=== PATIENT | male | born 2000 | race Caucasian/White ===

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

== ENCOUNTER 2021-02-01 12:44 | Emergency (ER) | payer MEDICAID, SELFPAY ==
[2021-02-01 12:45] VITALS: BP 120/82; PULSE 102; RESP 20; TEMP 35.7; O2SAT 100; BMI 20.9
[2021-02-01 14:11] LABS: Absolute Lymphocyte Count 1.47 X10^3/uL (0.83-4.51); Absolute Neutrophil Count 5.9 X10^3/uL (2.0-7.7); Basophil# 0.02 X10^3/uL; Basophil% 0.3 % (0-1); Eosinophil# 0.03 X10^3/uL; Eosinophils% 0.4 % (0-5); Hematocrit 46.6 % (40-54); Hemoglobin 15.8 g/dL (13.0-16.5); Lymphocyte # 1.47 X10^3/ul (0.83-4.51); Lymphocyte % 18.6 % (19-41); Mean Corp Hgb Conc 33.9 g/dL (32-36); Mean Corpuscular Hgb 30.8 pg (27.0-32.0); Mean Corpuscular Volume 90.8 fL (80-94); Mean Platelet Vol. 9.3 fl (6.2-12.0); Monocyte# 0.49 X10^3/uL; Monocyte% 6.2 % (0-10); NRBC Flagged by Analyzer 0 % (0-5); Neutrophil # 5.87 X10^3/uL (2.7-7.7); Neutrophil % 74.1 % (47-70); Platelet Count 271 K/mm3 (150-450); RBC Distribution Width CV 11.8 % (11.6-14.6); RBC Distribution Width SD 39.6 fl (35.1-43.9); Red Blood Count 5.13 M/mm3 (4.6-6.2); White Blood Count 7.9 K/mm3 (4.4-11.0)
[2021-02-01 14:23] LABS: Anion Gap 7 (5-15); BUN 9 mg/dL (7-18); BUN/Creat Ratio 11.7 RATIO (10-20); Calcium,Total 9.4 mg/dL (8.5-10.1); Chloride 108 mmol/L (98-107); Creatinine, Serum 0.77 mg/dL (0.70-1.30); EST Glomerular Filtration Rate 138 mL/min (>60); Est Glom Filt Rate - Afr Amer 167 mL/min (>60); Glucose 89 mg/dL (74-106); Potassium 4.1 mmol/L (3.5-5.1); Sodium Level 142 mmol/L (136-145)
[2021-02-01 15:16] VITALS: BP 124/81; PULSE 104; RESP 20; O2SAT 98
--- NOTE | 2021-02-01 15:17 | CT_ITS ---
INDICATION: RLQ pain -- IV PO Contrast EXAMINATION: CT ABDOMEN AND PELVIS with CONTRAST - CT Abdomen And Pelvis W/ Contrast Injection TECHNIQUE: Multiple axial images were obtained of the abdomen following administration of IV contrast. Planar reconstructions obtained. A radiation dose optimization technique was used for this scan. IV Contrast dosage and agent: 100 mL Isovue-370 Oral contrast: Gastrografin and 100 mL Isovue-370 Radiation Dose (provided by facility) CTDIvol (7.83 ) mGy, DLP ( 296.40) mGy-cm COMPARISON: 11/24/2015 FINDINGS: LOWER THORAX: Lungs are clear. HEPATOBILIARY: Liver: The liver is homogeneous and shows no evidence of focal lesion. Gallbladder: The gallbladder is unremarkable. Pancreas: Pancreas is normal size configuration and density. No mass is noted. Spleen: The spleen is homogeneous and normal in size. . BOWEL: Stomach: The stomach is normal in size configuration, no evidence of focal masses, abnormal calcifications. No hiatal hernia noted. Bowel: Large small bowel loops have normal configuration. Nonspecific segments of gas-filled small bowel present in the mid abdomen. Sequelae of mild enteritis is a consideration. No bowel obstruction. No evidence diverticulitis. Appendix: The visualized appendix has normal appearance.: GENITOURINARY: Adrenals: Both adrenal glands are normal in size. Kidneys: Kidneys appear symmetric in size. No calcifications are seen in the collecting system. There is no hydronephrosis or surrounding fluid. Bladder: Normal Pelvic organs: The visualized pelvic organs are normal in size and configuration. No masses or adenopathy noted. RETROPERITONEUM: There is normal appearance of the abdominal aorta and inferior vena cava. LYMPH NODES: No evidence of retroperitoneal or para-aortic masses fluid collections or adenopathy. PERITONEAL CAVITY: No ascites noted ANTERIOR ABDOMINAL WALL: Normal, no hernia identified. BONES AND SOFT TISSUES: The skeleton shows no evidence for fractures or destructive lesions. OTHER: None CT/Abdomen/Pelvis WITH Contrast IMPRESSION: 1. Nonspecific appearance of small bowel segments with mild gas distention and small air-fluid levels present. No masses or bowel obstruction however sequelae of mild enteritis is a consideration. 2. No evidence diverticulitis. 3. Normal appendix noted. 4. No evidence of obstructive uropathy. 5. No abnormal fluid collections noted. No evidence of radiodense cholelithiasis. Electronically Signed: Art Hunt MD at 17:43 EST Tel , Service support ,
--- NOTE | 2021-02-01 15:18 | EX.ED.DYSGE1 ---
HPI History of Present Illness Chief Complaint: Abd Pain Informant: patient Onset/Context/Timing Onset: Days (4 days) Context: Gradual Onset Current Severity: Mild Maximum Severity: Moderate Narrative Narrative: Patient presents secondary to cough along with loss of smell and taste in addition to right lower quadrant abdominal pain. Patient states that symptoms started 4 days ago but the typical head cold. He does have some sinus pressure. No fever or chills noted. He is coughing up yellow to green-colored sputum. He also complains of pain to the mid to lower right side of his abdomen. No pain with urination or bowel movements. [facility] Medical History Hydronephrosis Medical History no medical history Home Medications escitalopram oxalate [Lexapro] 10 mg PO DAILY 10/20/20 [History Last Taken Unknown] Allergy/AdvReac Type Severity Reaction Status Date / Time acetaminophen [From Tylenol] Allergy Swelling Verified 02/01/21 12:44 Surgical History no surgical history Social History Smoking Status: Current every day smoker tobacco type: cigarettes ROS ROS ED Constitutional Constitutional ED: Denies chills or fever(s) Eyes Eyes: Denies change in vision ENT ENT ED: Reports rhinorrhea and other Details: Sinus pressure ; Denies sore throat Cardiovascular Cardiovascular: Denies chest pain Respiratory/Chest Respiratory/Chest: Reports cough; Denies dyspnea Gastrointestinal Gastrointestinal: Reports abdominal pain; Denies diarrhea, nausea or vomiting Genitourinary Genitourinary ED: Denies dysuria or hematuria Integumentary Denies rash Neurologic Neurologic: Denies headache(s) or weakness Allergic/Immunologic Allergic/Immunologic ED: Denies urticaria EXAM Physical Exam Const Vital Signs: 02/01/21 12:45 02/01/21 15:16 02/01/21 17:04 Temperature 96.3 F L Temperature Source Temporal Pulse Rate 102 H 104 H 100 Respiratory Rate 20 H 20 H 18 Blood Pressure 120/82 H 124/81 H 120/71 Blood Pressure Mean 94 95 87 Pulse Ox 100 98 97 Oxygen Delivery Method Room Air Positive well nourished and well developed General Appearance ED: well developed Eyes PERRL and EOMs intact bilaterally Neck supple Chest Wall inspection of chest normal and palpation of chest normal Resp normal respiratory effort and clear to auscultation bilaterally Cardio regular rate and regular rhythm GI Auscultation: hypoactive bowel sounds Palpation: tender RLQ; Negative for rebound tenderness present Extremity normal to inspection Neuro oriented x3 Sensorium / Orientation: alert Psych mental status grossly normal Skin no rashes or lesions noted MDM MDM MDM Narrative Medical decision making narrative: Covid swab, lab work, urinalysis, CT of abdomen pelvis obtained. Patient given Toradol and IV fluids. Lab Data Attestation: I reviewed the patient's lab results. Labs: Laboratory Results - last 24 hr 02/01/21 02/01/21 02/01/21 13:55 13:55 15:18 WBC 7.9 RBC 5.13 Hgb 15.8 Hct 46.6 MCV 90.8 MCH 30.8 MCHC 33.9 RDW Std Deviation 39.6 RDW Coeff of Jimena 11.8 Plt Count 271 MPV 9.3 Immature Gran % (Auto) 0.400 Neut % (Auto) 74.1 H Lymph % (Auto) 18.6 L Williams % (Auto) 6.2 Eos % (Auto) 0.4 Baso % (Auto) 0.3 Absolute Neuts (auto) 5.9 Absolute Lymphs (auto) 1.47 Nucleated RBC % 0 Sodium 142 Potassium 4.1 Chloride 108 H Carbon Dioxide 27.0 Anion Gap 7 BUN 9 Creatinine 0.77 Estim Creat Clear Calc 148.50 Est GFR (MDRD) Af Amer 167 Est GFR (MDRD) Non-Af 138 BUN/Creatinine Ratio 11.7 Glucose 89 Calcium 9.4 Urine Color Yellow Urine Clarity Clear Urine pH 6.0 Ur Specific [place] 1.015 Urine Protein 15 H Urine Glucose (UA) Normal Urine Ketones 5 H Urine Occult Blood Negative Urine Nitrite Negative Urine Bilirubin Negative Urine Urobilinogen 1 H Ur Leukocyte Esterase 25 H Urine RBC 0 SEEN Urine WBC 0 SEEN Ur Squamous Epith Cells 0 SEEN Urine Bacteria RARE Urine Mucus 0 SEEN Rapid Covid: Negative Radiography Diagnostic Testing: Clinical Impression(s) from Imaging Studies Abdomen/Pelvis CT 02/01/21 15:17 IMPRESSION: 1. Nonspecific appearance of small bowel segments with mild gas distention and small air-fluid levels present. No masses or bowel obstruction however sequelae of mild enteritis is a consideration. 2. No evidence diverticulitis. 3. Normal appendix noted. 4. No evidence of obstructive uropathy. 5. No abnormal fluid collections noted. No evidence of radiodense cholelithiasis. Electronically Signed: Art Hunt MD at 17:43 EST Tel , Service support , Treatment and Re-Evaluation Comments:: Lab work unremarkable with normal white count. Normal renal function. Urinalysis shows no sign of infection or blood. CT scan reveals normal-appearing appendix. No acute findings noted. Test results discussed with the patient. I believe he has a viral illness, but Covid is negative. He is given instructions for supportive care. 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
[2021-02-01 15:22] LABS: Mucous, Urine 0 SEEN /hpf (<or=2+); Red Blood Cells-Urine 0 SEEN /hpf (0-5); Squamous Epithelial Cells - UA 0 SEEN /hpf (0-5); White Blood Cells 0 SEEN /hpf (0-5)
[2021-02-01 15:31] LABS: Color, Urine Yellow (Yellow); Glucose, Dipstick Normal (Normal); Ketone-Dipstick 5 mg/dl (Negative); Leukocyte Esterase-Dipstick 25 /ul (Negative); Nitrite-Dipstick Negative (Negative); Occult Blood-Urine Negative /ul (Negative); Protein-Dipstick 15 mg/dl (Negative); Specific Gravity, Urine 1.015 (1.002-1.030); Urine Bilirubin Dipstick Negative (Negative); Urine Clarity Clear (Clear); Urine Urobilinogen 1 mg/dl (Normal)
[2021-02-01 15:39] LABS: Bacteria RARE /hpf (None Seen)
[2021-02-01] MEDS: Ketorolac 30 MG/ML Syringe IV (16:10)
[2021-02-01] MEDS: 0.9% Normal Saline 1,000 ML 150 ML IV (16:11)
[2021-02-01 17:04] VITALS: BP 120/71; PULSE 100; RESP 18; O2SAT 97
== END 2021-02-01 18:07 | disposition home or self-care (01) ==
PROVIDERS: Emergency Provider Emergency Medicine; PCP Nurse Practitioner
DX: B34.9 Viral infection, unspecified (principal); F17.210 Nicotine dependence, cigarettes, uncomplicated
CPT/HCPCS: 74177; 80048; 81001; 85025; 87426; 96361; 96374; 99283; J7030; Q9967; A4216

== ENCOUNTER 2021-02-03 13:16 | Emergency (ER) | payer MEDICAID, SELFPAY ==
[2021-02-03 13:16] VITALS: BP 113/69; PULSE 79; RESP 18; TEMP 36.6; O2SAT 100; BMI 20.9
--- NOTE | 2021-02-03 15:19 | CT_ITS ---
STUDY: CT ORBITS WITH CONTRAST REASON FOR EXAM: Male, 20 years old. Periorbital cellulitis RADIATION DOSAGE (If Supplied By Facility): CTDIvol = ( 29.38 ) mGy, DLP = ( 341.77 ) mGycm TECHNIQUE: The patient was scanned in a multi detector CT scanner. Transaxial imaging was performed following the intravenous administration of IV 100mL Isovue-300. Sagittal and coronal images were reconstructed. Individualized dose optimization techniques were used for this CT. COMPARISON: None. FINDINGS: Normal globes. Normal intraconal spaces. Normal optic nerve sheath complex. Normal bilateral extraocular muscles. Normal lacrimal glands. Mild left periorbital subcutaneous edema. Normal bilateral medial and inferior orbital arambula. Normal bilateral maxillary bones. Normal bilateral frontozygomatic arches. Normal bilateral zygomatic temporal arches. Significant mucosal thickening of the paranasal sinuses compatible with pansinusitis. Normal soft tissue structures. There is no demonstrated abnormal enhancement. CT/Orb Sella Post Fossa Ear W/CON IMPRESSION: Pansinusitis. Mild left periorbital subcutaneous edema. Electronically Signed: Uli Damon DO at 18:11 EST Tel [phone], Service support ,
--- NOTE | 2021-02-03 15:20 | EDS_ITS ---
HPI History of Present Illness Chief Complaint: Edema Detail of Chief Complaint: Left eyelid edema and pain Informant: patient Onset/Context/Timing Onset: Yesterday Current Severity: Mild Maximum Severity: Moderate Narrative Narrative: Patient presents with pain and swelling around his left eye. He states last evening he noted some pain just above his left eye. He thought was a headache he could sleep it off. When he woke this morning his eye was matted shut. He then had a lot of watering from his eye. He states vision from his left eye does feel blurry. He does have pain when he moves his eye. Patient was recently seen with viral syndrome symptoms including URI like symptoms along with right lower quadrant pain. Test results were unremarkable and Covid test was -2 days ago. [facility] Medical History Hydronephrosis Home Medications escitalopram oxalate [Lexapro] 10 mg PO DAILY 10/20/20 [History Last Taken Unknown] clindamycin HCl 450 mg PO TID 10 Days #90 cap 02/03/21 [Rx Last Taken Unknown] Allergy/AdvReac Type Severity Reaction Status Date / Time acetaminophen [From Tylenol] Allergy Swelling Verified 02/01/21 12:44 Social History Smoking Status: Current every day smoker tobacco type: cigarettes ROS ROS ED Constitutional Constitutional ED: Denies chills or fever(s) Eyes Eyes: Reports change in vision ENT ENT ED: Reports rhinorrhea; Denies sore throat Cardiovascular Cardiovascular: Denies chest pain Respiratory/Chest Respiratory/Chest: Denies cough or dyspnea Gastrointestinal Gastrointestinal: Denies abdominal pain, diarrhea, nausea or vomiting Genitourinary Genitourinary ED: Denies dysuria Musculoskeletal Musculoskeletal: Denies back pain Integumentary Denies rash Neurologic Neurologic: Denies weakness Allergic/Immunologic Allergic/Immunologic ED: Denies urticaria EXAM Physical Exam Const Vital Signs: 02/03/21 13:16 Temperature 98 F Temperature Source Temporal Pulse Rate 79 Respiratory Rate 18 Blood Pressure 113/69 Blood Pressure Mean 83 Pulse Ox 100 Oxygen Delivery Method Room Air Positive well nourished and well developed General Appearance ED: well developed HEENT Reports moist mucous membranes HEENT Narrative: Clear rhinorrhea. Eyes PERRL and EOMs intact bilaterally Eyes Narrative: Minimal erythema around the left eyelid. Extraocular movements fully intact. No significant conjunctival injection. Neck supple Chest Wall inspection of chest normal and palpation of chest normal Resp normal respiratory effort and clear to auscultation bilaterally Cardio regular rate and regular rhythm GI normal to inspection, nondistended, normoactive bowel sounds and non-tender Palpation: soft Extremity normal to inspection Neuro oriented x3 Sensorium / Orientation: alert Skin no rashes or lesions noted MDM MDM MDM Narrative Medical decision making narrative: CT scan of the orbits with IV contrast ordered to rule out orbital cellulitis. Patient just had blood work drawn 2 days ago that was unremarkable. Radiography Diagnostic Testing: Clinical Impression(s) from Imaging Studies CT Orbit Sella Inner 02/03/21 15:19 IMPRESSION: Pansinusitis. Mild left periorbital subcutaneous edema. Electronically Signed: Uli Damon DO at 18:11 EST Tel [phone], Service support , Treatment and Re-Evaluation Comments:: CT scan reveals mild subcutaneous edema in the periorbital area but no evidence of orbital cellulitis. He does have sinus infection. He will be treated with antibiotics and given a work note until Sunday. Return instructions are provided. Discharge Plan Triage Chief Complaint: Edema ED Provider: Margy Hernandez Dx/Rx/DC Orders Clinical Impression: Sinusitis, Cellulitis, periorbital Instructions: ED Periorbital Cellulitis, ED Sinusitis (Antibiotic Treatment) Prescriptions: New clindamycin HCl 150 mg capsule 450 mg PO TID 10 Days Qty: 90 RF: 0 No Action escitalopram oxalate [Lexapro] 10 mg Tablet 10 mg PO DAILY RF: 0 Stand Alone Forms: ED Work / School Excuse Primary Care Provider: Franki Ro NP Referrals: Kristyn Dc MD [STAFF PHYSICIAN] - As Needed Franki Ro NP, OFFICE EXECUTIVE-C [Primary Care Provider] - Disposition Disposition: Home, Self Care
[2021-02-03] MEDS: Ketorolac 30 MG/ML Syringe IV (16:26)
[2021-02-03] MEDS: Clindamycin HCl 150 MG Capsule 450 MG PO (18:29)
== END 2021-02-03 18:33 | disposition home or self-care (01) ==
PROVIDERS: Emergency Provider Emergency Medicine; PCP Nurse Practitioner
DX: L03.213 Periorbital cellulitis (principal); J32.4 Chronic pansinusitis; F17.210 Nicotine dependence, cigarettes, uncomplicated
CPT/HCPCS: 70481; 96374; 99284; Q9967; A4216

== ENCOUNTER 2022-04-18 14:05 | Emergency (ER) | payer MEDICAID, SELFPAY ==
[2022-04-18 14:06] VITALS: BP 144/89; PULSE 92; RESP 16; TEMP 36.6; O2SAT 98; BMI 19.6
[2022-04-18 14:48] VITALS: BP 124/81; PULSE 73; RESP 16; O2SAT 98
--- NOTE | 2022-04-18 14:49 | CT_ITS ---
STUDY: CT ABDOMEN AND PELVIS WITH CONTRAST REASON FOR EXAM: Male, 22 years old. 3 day history of right lower quadrant pain. Bloody stool. RADIATION DOSAGE (If Supplied By Facility): CTDIvol = ( 13.35 ) mGy, DLP = ( 520.07 ) mGycm TECHNIQUE: Transaxial images were obtained from the dome of the diaphragm to the symphysis pubis without oral contrast. IV 100mL Isovue-300 was administered. Sagittal and coronal images were reconstructed. Individualized dose optimization techniques were used for this CT. COMPARISON: Comparison is made with prior study dated 02/01/2021. FINDINGS: The visualized lung bases are unremarkable. The visualized portions of the heart are within normal limits. Normal liver. Normal gallbladder and extrahepatic biliary system. Normal spleen. Normal pancreas. Normal bilateral adrenal glands. Normal right kidney. Normal left kidney. Normal visualized stomach. Normal small intestine. Mural thickening of the rectosigmoid colon. The appendix is visualized and appears normal. Normal abdominal aorta. Normal inferior vena cava. Normal retroperitoneum. Normal urinary bladder. Normal abdominal wall. Normal osseous structures. CT/Abdomen/Pelvis W IV Cont ONLY IMPRESSION: Mural thickening of the rectosigmoid colon. Electronically Signed: Renzo Denton MD at 15:57 EST ,
--- NOTE | 2022-04-18 14:50 | EDS_ITS ---
HPI History of Present Illness Chief Complaint: Abd Pain Narrative Narrative: Patient presents with abdominal pain that started about 2 days ago, it is right lower quadrant. It is associated with some nausea. He has no flank pain associated with this he has no testicular pain or urinary symptoms. No recent fevers or chills. [facility] Medical History Hydronephrosis Home Medications escitalopram oxalate 10 mg tablet (Lexapro) 10 mg PO DAILY 10/20/20 [History Last Taken Unknown] clindamycin HCl 150 mg capsule 450 mg PO TID 10 days #90 caps 02/03/21 [Rx Last Taken Unknown] dicyclomine 20 mg tablet 20 mg PO BID #20 tabs 04/18/22 [Rx Last Taken Unknown] Allergy/AdvReac Type Severity Reaction Status Date / Time acetaminophen [From Tylenol] Allergy Swelling Verified 04/18/22 14:09 Family History no significant family his Surgical History no surgical history Social History Smoking Status: Current every day smoker tobacco type: cigarettes ROS ROS ED ROS Narrative Past medical history: Reviewed Medications: Reviewed Social history: Noncontributory Review of systems: All systems negative except as indicated General: No fever ENT: No upper airway congestion, normal voice Neck: No neck pain Cardiovascular: No chest pain Respiratory: No shortness of breath or cough Gastrointestinal: As in HPI Genitourinary: No dysuria Musculoskeletal: Denies myalgias no difficulty with ambulation Skin: No rash Neurological: No memory loss, confusion or any focal weakness Psych: No recent behavioral changes Hematologic: No easy bleeding or easy bruising EXAM Physical Exam Narrative Exam Narrative: Physical exam General: Well nourished, Well developed, No Acute Distress Head: Normocephalic, Atraumatic Eyes: Conjunctiva not pale ENT: Moist mucous membranes Neck: Supple, Nontender, No lymphadenopathy Cardiovascular: Regular rate, Regular rhythm Respiratory: No distress, CTA bilaterally Abdomen: Soft, right lower quadrant abdominal tenderness no guarding or rebound. No CVA tenderness. Back: Nontender, Normal Inspection. Negative for: CVA tenderness Extremities: Nontender, No edema Skin: Normal color, No rash Neurological: Alert, Normal Strength, Normal Sensation Psychological: Normal affect Const Vital Signs: 04/18/22 14:06 04/18/22 14:48 Temperature 98 F Temperature Source Temporal Pulse Rate 92 73 Respiratory Rate 16 16 Blood Pressure 144/89 H 124/81 H Blood Pressure Mean 107 95 Pulse Ox 98 98 Oxygen Delivery Method Room Air MDM MDM MDM Narrative Medical decision making narrative: Patient denies a normal white count and hemoglobin, he was worried that he did see some blood in his stool. He may have colitis, he is in the H distribution for Crohn's and/or ulcerative colitis and may need a scope. I will refer him to GI. Otherwise I discussed with him and his friend in the room, he was given analgesia in the ED he has no diarrhea or any other infectious signs or symptoms I believe he can be safely discharged home. If anything changes he is to return. Lab Data Labs: Laboratory Results - last 24 hr 04/18/22 04/18/22 15:01 15:01 WBC 6.1 RBC 4.79 Hgb 15.3 Hct 44.5 MCV 92.9 MCH 31.9 MCHC 34.4 RDW Std Deviation 38.8 RDW Coeff of Jimena 11.3 L Plt Count 149 L MPV 10.1 Immature Gran % (Auto) 0.200 Neut % (Auto) 58.2 Lymph % (Auto) 32.6 [place] % (Auto) 7.8 Eos % (Auto) 0.7 Baso % (Auto) 0.5 Absolute Neuts (auto) 3.6 Absolute Lymphs (auto) 2.00 Nucleated RBC % 0 Sodium 142 Potassium 3.7 Chloride 111 H Carbon Dioxide 26.0 Anion Gap 5 BUN 12 Creatinine 0.82 Estim Creat Clear Calc 132.57 Est GFR (MDRD) Af Amer 153 Est GFR (MDRD) Non-Af 127 BUN/Creatinine Ratio 14.7 Glucose 91 Calcium 9.3 Total Bilirubin 0.80 AST 8 L ALT 13 L Alkaline Phosphatase 72 Total Protein 7.3 Albumin 4.3 Globulin 3.0 Albumin/Globulin Ratio 1.4 Lipase 21 L Radiography Diagnostic Testing: Clinical Impression(s) from Imaging Studies Abdomen/Pelvis CT 04/18/22 14:49 IMPRESSION: Mural thickening of the rectosigmoid colon. Electronically Signed: Renzo Denton MD at 15:57 EST , Discharge Plan Triage Chief Complaint: Abd Pain ED Provider: Francisco Marie Dx/Rx/DC Orders Clinical Impression: Abdominal pain, Bright red rectal bleeding, Colitis Instructions: Abdominal Pain Prescriptions: New dicyclomine 20 mg tablet 20 mg PO BID Qty: 20 0RF No Action escitalopram oxalate [Lexapro] 10 mg Tablet 10 mg PO DAILY clindamycin HCl 150 mg capsule 450 mg PO TID 10 Days Qty: 90 0RF Primary Care Provider: Franki Ro NP Referrals: Palmer Quick DO [Med Staff - Active Staff] - 3-5 Days Franki Ro NP, BLADE BENDER FURNACE TENDER-C [Primary Care Provider] - Disposition Disposition: Home, Self Care
[2022-04-18 15:12] LABS: Absolute Neutrophil Count 3.6 X10^3/uL (2.0-7.7); Basophil# 0.03 X10^3/uL; Basophil% 0.5 % (0-1); Eosinophil# 0.04 X10^3/uL; Eosinophils% 0.7 % (0-5); Hematocrit 44.5 % (40-54); Hemoglobin 15.3 g/dL (13.0-16.5); Lymphocyte % 32.6 % (19-41); Mean Corp Hgb Conc 34.4 g/dL (32-36); Mean Corpuscular Hgb 31.9 pg (27.0-32.0); Mean Corpuscular Volume 92.9 fL (80-94); Mean Platelet Vol. 10.1 fl (6.2-12.0); Monocyte# 0.48 X10^3/uL; Monocyte% 7.8 % (0-10); NRBC Flagged by Analyzer 0 % (0-5); Neutrophil # 3.58 X10^3/uL (2.7-7.7); Neutrophil % 58.2 % (47-70); Platelet Count 149 K/mm3 (150-450); RBC Distribution Width CV 11.3 % (11.6-14.6); RBC Distribution Width SD 38.8 fl (35.1-43.9); Red Blood Count 4.79 M/mm3 (4.6-6.2); White Blood Count 6.1 K/mm3 (4.4-11.0)
[2022-04-18] MEDS: Ondansetron 4 MG/2 ML Vial IV (15:12)
[2022-04-18] MEDS: Morphine 4 MG/ML Syringe IV (15:12)
[2022-04-18 15:26] LABS: ALB/GLOB Ratio 1.4 RATIO (0.9-2.4); AST(SGOT) 8 U/L (15-37); Alanine Aminotransfer ALT/SGPT 13 U/L (16-61); Albumin, Serum 4.3 g/dL (3.2-5.0); Alkaline Phosphatase 72 U/L (45-117); Anion Gap 5 (5-15); BUN 12 mg/dL (7-18); BUN/Creat Ratio 14.7 RATIO (10-20); Calcium,Total 9.3 mg/dL (8.5-10.1); Chloride 111 mmol/L (98-107); Creatinine, Serum 0.82 mg/dL (0.70-1.30); EST Glomerular Filtration Rate 127 mL/min (>60); Est Glom Filt Rate - Afr Amer 153 mL/min (>60); Estimated Creatinine Clearance 132.57 ml/min; Glucose 91 mg/dL (74-106); Lipase 21 U/L (73-393); Potassium 3.7 mmol/L (3.5-5.1); Protein, Total 7.3 g/dL (6.4-8.2); Sodium Level 142 mmol/L (136-145)
[2022-04-18 16:18] VITALS: BP 124/81; PULSE 68; RESP 16; O2SAT 100
== END 2022-04-18 16:19 | disposition home or self-care (01) ==
PROVIDERS: Emergency Provider Emergency Medicine; PCP Nurse Practitioner; Visit Provider Emergency Medicine
DX: K52.9 Noninfective gastroenteritis and colitis, unspecified (principal); F17.210 Nicotine dependence, cigarettes, uncomplicated
CPT/HCPCS: 74177; 80053; 83690; 85025; 96361; 96374; 96375; 99283; J7030; Q9967; A4216; J2405

== ENCOUNTER 2022-08-18 21:14 | Emergency (ER) | payer MEDICAID, SELFPAY ==
[2022-08-18 21:15] VITALS: BP 132/72; PULSE 84; RESP 16; TEMP 36.4; O2SAT 99; BMI 20.9
--- NOTE | 2022-08-18 21:28 | EDS_ITS ---
HPI History of Present Illness Chief Complaint: Upper Extremity Injury Informant: patient Narrative Narrative: Patient states he came home from work and slipped and fell on hardwood floor that was wet, falling against his left forearm. He has pain from the wrist to the elbow and a little in the shoulder he did not fall against the shoulder. He is left-hand dominant. No other injuries. [facility] Medical History Hydronephrosis Allergy/AdvReac Type Severity Reaction Status Date / Time acetaminophen [From Tylenol] Allergy Severe Anaphylaxis Verified 08/18/22 21:50 Social History Smoking Status: Current every day smoker tobacco type: cigarettes ROS ROS ED Constitutional Constitutional ED: Denies chills or fever(s) Musculoskeletal Musculoskeletal: Reports extremity pain; Denies neck pain Integumentary Denies Abrasions, rash or wounds Neurologic Neurologic: Denies paresthesias or weakness EXAM Physical Exam Const Vital Signs: 08/18/22 21:15 Temperature 97.6 F L Temperature Source Temporal Pulse Rate 84 Respiratory Rate 16 Blood Pressure 132/72 H Blood Pressure Mean 92 Pulse Ox 99 Oxygen Delivery Method Room Air Positive well nourished and well developed General Appearance ED: well developed and NAD Neck full ROM and supple Back/Spine normal ROM and normal to inspection Extremity Extremity Narrative: Abrasions to the volar aspect of the mid left forearm without deformity. Mild swelling. Limited range of motion of the wrist and elbow due to pain. There is no bony tenderness at the elbow. Mild tenderness at the acromion of the left shoulder but good range of motion there. No acromioclavicular tenderness or clavicle tenderness. He is tender at the distal radius and forearm, the distal two thirds of them. He can supinate and pronate somewhat limited with this but he is able. No hand tenderness or limitations. Neuro oriented x3, no focal motor deficits and no sensory deficits noted Sensorium / Orientation: alert Psych mental status grossly normal and thought process normal Skin no wounds Rashes: no rashes MDM MDM MDM Narrative Medical decision making narrative: 2 view x-ray series of the right forearm were obtained including the wrist and the elbow, all negative for any acute fracture or dislocation on my interpretation. Patient reassured likely muscular injury, all compartments are soft and nondistended and I do not suspect acute compartment syndrome here. Given a wrist splint, ice pack, Naprosyn, instructions for supportive care and reasons to return. Discharge Plan Triage Chief Complaint: Upper Extremity Injury ED Provider: Tony Frankel Dx/Rx/DC Orders Clinical Impression: Contusion of left forearm, Fall from slipping on wet surface Instructions: ED Contusion, Upper Extremity Primary Care Provider: Franki Ro NP Referrals: Franki Ro NP, WARDROBE COORDINATOR-C [Primary Care Provider] - Doctor,Your [Non-Staff] - 1 Week if not improving Disposition Disposition: Home, Self Care Discharge Date/Time: 08/18/22 22:39
--- NOTE | 2022-08-18 21:28 | RAD_ITS ---
INDICATION: injury EXAMINATION/TECHNIQUE: X-RAY - LEFT XR Forearm 2 Views COMPARISON: None. FINDINGS: 2 views of the left forearm. BONES: Normal anatomic alignment without evidence of fracture or subluxation. No concerning bony lesion or abnormal sclerosis to suggest lesion. JOINTS: No significant degenerative change. SOFT TISSUES: Unremarkable. RAD/Forearm 2 Views IMPRESSION: No acute osseous abnormality of the left forearm. Electronically Signed: Shaun Bagley MD at 22:59 EDT ,
[2022-08-18] MEDS: Naproxen 250 MG Tablet 500 MG PO (22:35)
== END 2022-08-18 22:39 | disposition home or self-care (01) ==
PROVIDERS: Emergency Provider Emergency Medicine; PCP Nurse Practitioner; Visit Provider Emergency Medicine
DX: S50.12XA Contusion of left forearm, initial encounter (principal); W01.0XXA Fall on same level from slipping, tripping and stumbling without subsequent striking against object, initial encounter; F17.210 Nicotine dependence, cigarettes, uncomplicated
CPT/HCPCS: 73090; 99283

== ENCOUNTER 2023-05-08 14:36 | Emergency (ER) | payer MEDICAID, SELFPAY ==
--- NOTE | 2023-05-08 15:00 | RAD_ITS ---
STUDY: X-RAY - LEFT FOOT CLINICAL: Male, 23 years old. CRUSH INJURY TECHNIQUE: 3 view(s) of the foot. COMPARISON: None. FINDINGS: Normal talus, calcaneus, and tarsal bones. Normal visualized subtalar, talonavicular, calcaneocuboid, tarsal and tarsometatarsal articulations. Normal metatarsi. Normal metatarsophalangeal joint of the great toe. Normal tibial and fibular sesamoid bones. Normal interphalangeal joint of the great toe. Normal phalanges of the great toe. Normal second through fifth metatarsophalangeal joints. Normal interphalangeal joints and phalanges of the lesser toes. The soft tissue structures are unremarkable. RAD/Foot min 3 Views IMPRESSION: Normal x-ray examination of the foot. Electronically Signed: Dao Holly MD at 18:00 EDT ,
== END 2023-05-08 16:54 | disposition home or self-care (01) ==
LOC: ED 17:02
PROVIDERS: Emergency Provider Emergency Medicine; PCP Nurse Practitioner; Visit Provider Emergency Medicine
DX: S92.325A Nondisplaced fracture of second metatarsal bone, left foot, initial encounter for closed fracture (principal); W31.89XA Contact with other specified machinery, initial encounter; F17.200 Nicotine dependence, unspecified, uncomplicated
CPT/HCPCS: 73630; 99283

== ENCOUNTER 2023-09-14 13:14 | Emergency (ER) | payer MEDICAID, SELFPAY ==
[2023-09-14 13:14] VITALS: BP 136/92; PULSE 84; RESP 18; TEMP 36.1; O2SAT 99; BMI 19.8
--- NOTE | 2023-09-14 13:32 | CT_ITS ---
STUDY: CT ABDOMEN AND PELVIS WITH CONTRAST REASON FOR EXAM: Male, 23 years old. rlq pain RADIATION DOSAGE (If Supplied By Facility): CTDIvol = ( 5.78 ) mGy, DLP = ( 258.53 ) mGycm TECHNIQUE: Transaxial images were obtained from the dome of the diaphragm to the symphysis pubis without oral contrast. IV 100mL Isovue-300 was administered. Sagittal and coronal images were reconstructed. Individualized dose optimization techniques were used for this CT. COMPARISON: Comparison is made with prior study April 18, 2022. FINDINGS: The visualized lung bases are unremarkable. The visualized portions of the heart are within normal limits. Normal liver. Normal gallbladder and extrahepatic biliary system. Normal spleen. Normal pancreas. Normal bilateral adrenal glands. Normal right kidney. Normal left kidney. Normal visualized stomach. Normal small intestine. Normal colon. The appendix is visualized and appears normal. Small lymph nodes are seen in the mesentery in the right lower quadrant suggestive of mesenteric adenitis. Normal abdominal aorta. Normal inferior vena cava. Normal retroperitoneum. Normal urinary bladder. Normal abdominal wall. Straightening of the normal lumbar lordosis. CT/Abdomen/Pelvis W IV Cont ONLY IMPRESSION: Findings suggestive of mesenteric adenitis in the mesentery in the right lower quadrant. Electronically Signed: Renzo Denton MD at 14:11 EDT ,
--- NOTE | 2023-09-14 13:33 | EX.ED.DYSGE1 ---
HPI <SAEED Jones - Last Filed: 09/14/23 15:07> History of Present Illness Chief Complaint: Abd Pain Narrative Narrative: 23 year old male with no pmh presents with two days of RLQ abdominal pain. The pain started yesterday and this morning after eating a breakfast sandwich he vomited x4 around 9 am at work. The pain has intensified today and hurts to walk or move. It feels better if he applies pressure to the area. He has had 3-4 loose nonbloody stools over the last few days. No melena or hematochezia. Normal urination. No abdominal surgical history. He vapes and drinks alcohol occasionally. PFSH <SAEED Jones - Last Filed: 09/14/23 15:07> PFSH Medical History Hydronephrosis Home Medications ?Medication ?Instructions ?Recorded ?Last Taken ?Type ibuprofen 600 mg tablet 600 mg PO Q6H PRN pain 5 days #30 09/14/23 Unknown Rx tabs Allergy/AdvReac Type Severity Reaction Status Date / Time acetaminophen (From Tylenol) Allergy Severe Anaphylaxis Verified 09/14/23 13:14 Social History Smoking Status: Current every day smoker tobacco type: cigarettes ROS <SAEED Jones - Last Filed: 09/14/23 15:07> ROS ED Constitutional Constitutional ED: Denies chills or fever(s) Cardiovascular Cardiovascular: Denies chest pain Respiratory/Chest Respiratory/Chest: Denies dyspnea Gastrointestinal Gastrointestinal: Reports abdominal pain, diarrhea, nausea and vomiting Genitourinary Genitourinary ED: Denies dysuria or hematuria EXAM <SAEED Jones - Last Filed: 09/14/23 15:07> Physical Exam Const Vital Signs: 09/14/23 13:14 09/14/23 15:03 Temperature 97 F L 97.3 F L Temperature Source Temporal Pulse Rate 84 83 Respiratory Rate 18 16 Blood Pressure 136/92 H 127/85 H Blood Pressure Mean 106 99 Pulse Ox 99 99 Oxygen Delivery Method Room Air Positive well nourished and well developed General Appearance ED: well developed Resp normal respiratory effort and clear to auscultation bilaterally Cardio regular rate, regular rhythm and no murmurs GI normal to inspection, nondistended, normoactive bowel sounds GI Narrative: soft with TTP epigastric region and RLQ with guarding, pain with movement in bed Auscultation: normoactive bowel sounds Back/Spine no CVA tenderness Extremity normal to inspection Neuro CN's II-XII intact bilaterally Sensorium / Orientation: alert <Dr. Rosario Aleman DO - Last Filed: 09/16/23 07:30> Physical Exam Const Vital Signs: 09/14/23 13:14 09/14/23 15:03 Temperature 97 F L 97.3 F L Temperature Source Temporal Pulse Rate 84 83 Respiratory Rate 18 16 Blood Pressure 136/92 H 127/85 H Blood Pressure Mean 106 99 Pulse Ox 99 99 Oxygen Delivery Method Room Air MDM <SAEED Jones - Last Filed: 09/14/23 15:07> MDM MDM Narrative Medical decision making narrative: History from: patient, significant other Differential: appendicitis, kidney stone, uti among others 23 year old male was evaluated for 2 days of RLQ abdominal pain. He appears uncomfortable but nontoxic. Vital signs stable. He has RLQ tenderness with voluntary guarding on exam. CBC, CMP, lipase and UA are unremarkable. CT scan shows right lower quadrant mesenteric adenitis. The appendix appears normal. After Zofran, morphine and toradol he is feeling improved. I discussed the normal course of this illness and prescribed motrin for pain. He was discharged in stable condition. Lab Data Attestation: I reviewed the patient's lab results. Labs: Laboratory Results - last 24 hr 09/14/23 09/14/23 13:23 14:10 WBC 7.7 RBC 4.81 Hgb 15.0 Hct 42.4 MCV 88.1 MCH 31.2 MCHC 35.4 RDW Std Deviation 37.1 RDW Coeff of Jimena 11.5 L Plt Count 189 MPV 9.5 Immature Gran % (Auto) 0.400 Neut % (Auto) 70.2 H Lymph % (Auto) 23.4 [place] % (Auto) 5.2 Eos % (Auto) 0.3 Baso % (Auto) 0.5 Absolute Neuts (auto) 5.4 Absolute Lymphs (auto) 1.81 Nucleated RBC % 0 Sodium 139 Potassium 3.7 Chloride 107 Carbon Dioxide 23.0 Anion Gap 9 BUN 9 Creatinine 0.89 Estim Creat Clear Calc 119.14 Est GFR (MDRD) Af Amer 137 Est GFR (MDRD) Non-Af 113 BUN/Creatinine Ratio 10.1 Glucose 93 Calcium 9.4 Total Bilirubin 0.90 Direct Bilirubin 0.18 AST 15 ALT 18 Alkaline Phosphatase 72 Total Protein 8.0 Albumin 4.4 Globulin 3.6 Lipase < 10 L Urine Color Yellow Urine Clarity Clear Urine pH 7.0 Ur Specific Kinder 1.010 Urine Protein Negative Urine Glucose (UA) Normal Urine Ketones Negative Urine Occult Blood Negative Urine Nitrite Negative Urine Bilirubin Negative Urine Urobilinogen Normal Ur Leukocyte Esterase Negative Urine RBC 0 SEEN Urine WBC 0-5 SEEN Ur Squamous Epith Cells 0 SEEN Urine Bacteria 1+ Urine Mucus 0 SEEN Radiography Diagnostic Testing: Clinical Impression(s) from Imaging Studies Abdomen/Pelvis CT 09/14/23 13:32 IMPRESSION: Findings suggestive of mesenteric adenitis in the mesentery in the right lower quadrant. Electronically Signed: Renzo Denton MD at 14:11 EDT , <Dr. Rosario Aleman, DO - Last Filed: 09/16/23 07:30> [facility] Narrative Medical decision making narrative: History from: patient, significant other Differential: appendicitis, kidney stone, uti among others 23 year old male was evaluated for 2 days of RLQ abdominal pain. He appears uncomfortable but nontoxic. Vital signs stable. He has RLQ tenderness with voluntary guarding on exam. CBC, CMP, lipase and UA are unremarkable. CT scan shows right lower quadrant mesenteric adenitis. The appendix appears normal. After Zofran, morphine and toradol he is feeling improved. I discussed the normal course of this illness and prescribed motrin for pain. He was discharged in stable condition. I have personally performed a face to face assessment of the patient and have reviewed the WILTON Note. I performed a substantive portion of the visit including all aspects of the following. My feliciano findings include: History is Patient is 23-year-old male presenting with 2 days of right lower quadrant abdominal pain. Did not take any for pain prior to arrival. Lab work is normal. Given the pain in the right lower quadrant CT abdomen pelvis is obtained we are concerned of appendicitis. This does not show appendicitis but does show findings consistent with mesenteric adenitis. This is consistent with his presentation. As counseled treatment for this is NSAIDs and it self resolving. Patient and significant other verbalized agreement of transplant. Patient discharged home in stable condition. Other additions or changes: [None] Lab Data Labs: Laboratory Results - last 24 hr 09/14/23 09/14/23 13:23 14:10 WBC 7.7 RBC 4.81 Hgb 15.0 Hct 42.4 MCV 88.1 MCH 31.2 MCHC 35.4 RDW Std Deviation 37.1 RDW Coeff of Jimena 11.5 L Plt Count 189 MPV 9.5 Immature Gran % (Auto) 0.400 Neut % (Auto) 70.2 H Lymph % (Auto) 23.4 [place] % (Auto) 5.2 Eos % (Auto) 0.3 Baso % (Auto) 0.5 Absolute Neuts (auto) 5.4 Absolute Lymphs (auto) 1.81 Nucleated RBC % 0 Sodium 139 Potassium 3.7 Chloride 107 Carbon Dioxide 23.0 Anion Gap 9 BUN 9 Creatinine 0.89 Estim Creat Clear Calc 119.14 Est GFR (MDRD) Af Amer 137 Est GFR (MDRD) Non-Af 113 BUN/Creatinine Ratio 10.1 Glucose 93 Calcium 9.4 Total Bilirubin 0.90 Direct Bilirubin 0.18 AST 15 ALT 18 Alkaline Phosphatase 72 Total Protein 8.0 Albumin 4.4 Globulin 3.6 Lipase < 10 L Urine Color Yellow Urine Clarity Clear Urine pH 7.0 Ur Specific Kinder 1.010 Urine Protein Negative Urine Glucose (UA) Normal Urine Ketones Negative Urine Occult Blood Negative Urine Nitrite Negative Urine Bilirubin Negative Urine Urobilinogen Normal Ur Leukocyte Esterase Negative Urine RBC 0 SEEN Urine WBC 0-5 SEEN Ur Squamous Epith Cells 0 SEEN Urine Bacteria 1+ Urine Mucus 0 SEEN Radiography Diagnostic Testing: Clinical Impression(s) from Imaging Studies Abdomen/Pelvis CT 09/14/23 13:32 IMPRESSION: Findings suggestive of mesenteric adenitis in the mesentery in the right lower quadrant. Electronically Signed: Renzo Denton MD at 14:11 EDT , Discharge Plan Triage Chief Complaint: Abd Pain ED Midlevel Provider: Donna Srivastava ED Provider: Rosario Aleman Dx/Rx/DC Orders Clinical Impression: Mesenteric adenitis Instructions: ED Adenitis, Mesenteric Prescriptions: New ibuprofen 600 mg tablet 600 mg PO Q6H PRN (Reason: pain) 5 Days Qty: 30 0RF Stand Alone Forms: ED Work / School Excuse Primary Care Provider: Franki Ro NP Referrals: Franki Ro NP, [facility] [Primary Care Provider] - Activity Restrictions/Additional Instructions: You can also take over the counter tylenol as needed, rest, drink fluids. Print Language: Estonian Disposition Disposition: Home, Self Care Discharge Date/Time: 09/14/23 15:08
[2023-09-14] MEDS: 0.9% Normal Saline (1000mL) 1,000 ML 999 ML IV (13:38)
[2023-09-14] MEDS: Morphine 4 MG/ML Syringe IV (13:38)
[2023-09-14] MEDS: Ondansetron 4 MG/2 ML Vial IV (13:38)
[2023-09-14 13:42] LABS: Absolute Lymphocyte Count 1.81 X10^3/uL (0.83-4.51); Absolute Neutrophil Count 5.4 X10^3/uL (2.0-7.7); Basophil# 0.04 X10^3/uL; Basophil% 0.5 % (0-1); Eosinophil# 0.02 X10^3/uL; Eosinophils% 0.3 % (0-5); Hematocrit 42.4 % (40-54); Lymphocyte # 1.81 X10^3/ul (0.83-4.51); Lymphocyte % 23.4 % (19-41); Mean Corp Hgb Conc 35.4 g/dL (32-36); Mean Corpuscular Hgb 31.2 pg (27.0-32.0); Mean Corpuscular Volume 88.1 fL (80-94); Mean Platelet Vol. 9.5 fl (6.2-12.0); Monocyte% 5.2 % (0-10); NRBC Flagged by Analyzer 0 % (0-5); Neutrophil # 5.42 X10^3/uL (2.7-7.7); Neutrophil % 70.2 % (47-70); Platelet Count 189 K/mm3 (150-450); RBC Distribution Width CV 11.5 % (11.6-14.6); RBC Distribution Width SD 37.1 fl (35.1-43.9); Red Blood Count 4.81 M/mm3 (4.6-6.2); White Blood Count 7.7 K/mm3 (4.4-11.0)
[2023-09-14 13:53] LABS: Anion Gap 9 (5-15); BUN 9 mg/dL (7-18); BUN/Creat Ratio 10.1 RATIO (10-20); Calcium,Total 9.4 mg/dL (8.5-10.1); Chloride 107 mmol/L (98-107); Creatinine, Serum 0.89 mg/dL (0.70-1.30); EST Glomerular Filtration Rate 113 mL/min (>60); Est Glom Filt Rate - Afr Amer 137 mL/min (>60); Estimated Creatinine Clearance 119.14 ml/min; Glucose 93 mg/dL (74-106); Potassium 3.7 mmol/L (3.5-5.1); Sodium Level 139 mmol/L (136-145)
[2023-09-14 14:03] LABS: AST(SGOT) 15 U/L (15-37); Alanine Aminotransfer ALT/SGPT 18 U/L (16-61); Albumin, Serum 4.4 g/dL (3.2-5.0); Alkaline Phosphatase 72 U/L (45-117); Bilirubin, Direct 0.18 mg/dL (0.00-0.30); Globulin 3.6 g/dL (2.2-4.2); Lipase < 10 U/L (13-75)
[2023-09-14 14:11] LABS: Mucous, Urine 0 SEEN /hpf (<or=2+); Red Blood Cells-Urine 0 SEEN /hpf (0-5); Squamous Epithelial Cells - UA 0 SEEN /hpf (0-5)
[2023-09-14 14:28] LABS: Color, Urine Yellow (Yellow); Glucose, Dipstick Normal (Normal); Ketone-Dipstick Negative (Negative); Leukocyte Esterase-Dipstick Negative /ul (Negative); Nitrite-Dipstick Negative (Negative); Occult Blood-Urine Negative /ul (Negative); Protein-Dipstick Negative (Negative); Urine Bilirubin Dipstick Negative (Negative); Urine Clarity Clear (Clear); Urine Urobilinogen Normal (Normal)
[2023-09-14 14:39] LABS: Bacteria 1+ /hpf (None Seen); White Blood Cells 0-5 SEEN /hpf (0-5)
[2023-09-14] MEDS: Ketorolac 30 MG/ML Syringe IV (14:47)
[2023-09-14 15:03] VITALS: BP 127/85; PULSE 83; RESP 16; TEMP 36.3; O2SAT 99
== END 2023-09-14 15:08 | disposition home or self-care (01) ==
PROVIDERS: Physician Assistant; Emergency Provider Emergency Medicine; PCP Nurse Practitioner; Visit Provider Emergency Medicine
DX: I88.0 Nonspecific mesenteric lymphadenitis (principal); F17.210 Nicotine dependence, cigarettes, uncomplicated
CPT/HCPCS: 74177; 80048; 80076; 81001; 83690; 85025; 96361; 96374; 96375; 99283; J7030; Q9967; A4216; J2405

== ENCOUNTER 2024-05-04 10:06 | Emergency (ER) | payer MEDICAID, SELFPAY ==
[2024-05-04 10:07] VITALS: BP 128/81; PULSE 83; RESP 15; TEMP 36.2; O2SAT 100; BMI 20.9
--- NOTE | 2024-05-04 10:15 | EX.ED.UPPERE ---
HPI History of Present Illness HPI Narrative: 24-year-old male left hand dominant no significant past medical or surgical history. Complaining of 3-day history of left wrist and forearm pain. Chief Complaint: Upper Extremity Injury Informant: patient Occured/Mechanism Mechanism/Context: No injury and No blunt trauma Onset/Context/Timing Onset: Days Context: Gradual Onset Timing: Continuous Quality of Pain: Sharp Current Severity: Mild Maximum Severity: Moderate Associated Symptoms Associated Symptoms: Negative for Parasthesia, Weakness or Loss of Funtion Narrative Narrative: 24-year-old [id number] male. Complaining of atraumatic left dorsal wrist and forearm pain. Worse with movement. Denies any fall injury or trauma. No swelling or fever. No prior history of left wrist or forearm surgery or prior fractures. Prior similar symptoms: No Recent Illness/Hospitalization: No PFSH PFSH Medical History Smoker Hydronephrosis no medical history Home Medications ?Medication ?Instructions ?Recorded ?Last Taken ?Type ibuprofen 600 mg tablet 600 mg PO Q6H PRN pain 5 days #30 09/14/23 Unknown Rx tabs Allergy/AdvReac Type Severity Reaction Status Date / Time acetaminophen (From Tylenol) Allergy Severe Anaphylaxis Verified 05/04/24 10:08 Social History Smoking Status: Current every day smoker tobacco type: cigarettes ROS ROS ED ROS Narrative Denies recent illness. Constitutional Constitutional ED: Denies chills or fever(s) Eyes Eyes: Denies blurry vision ENT ENT ED: Denies ear pain Cardiovascular Cardiovascular: Denies chest pain Respiratory/Chest Respiratory/Chest: Denies cough or dyspnea Gastrointestinal Gastrointestinal: Denies abdominal pain Genitourinary Genitourinary ED: Denies dysuria Musculoskeletal Musculoskeletal: Denies back pain Integumentary Denies abscess Neurologic Neurologic: Denies headache(s) Psychiatric Psychiatric: Denies anxiety Endocrine Endocrinology: Denies cold intolerance Hematologic/Lymphatic Hematologic/Lymphatic: Denies easy bleeding, easy bruising or lymphadenopathy Allergic/Immunologic Allergic/Immunologic ED: Denies mouth swelling, tongue swelling or urticaria EXAM Physical Exam Narrative Exam Narrative: 24-year-old male no acute distress sitting upright in bed. Vital signs are stable afebrile. H EENT exam pupils round reactive light. Moist mucous membranes. Normal speech. Neck nontender. Back nontender. Lungs clear to auscultation bilaterally. Heart regular rhythm no murmur. Chest wall ribs nontender. Abdomen soft nontender. Moving all 4 extremities. Neurovascularly intact. Specifically left shoulder and elbow are nontender nonswollen. There is no axillary lymphadenopathy. He has tenderness along the dorsum of the left wrist there is no deformity. No swelling. No redness or warmth. Normal radial pulse. He has normal range of motion of the left shoulder, left elbow and left wrist. 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 Normal cap refill and touch sensation. 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 When he places his left thumb in his palm and ulnar flexes it he has significant pain consistent with a decor veins tenosynovitis. Neurologically is awake and alert with no focal motor deficits. Const Vital Signs: 05/04/24 10:07 Temperature 97.1 F L Temperature Source Temporal Pulse Rate 83 Respiratory Rate 15 Blood Pressure 128/81 H Blood Pressure Mean 96 Pulse Ox 100 Oxygen Delivery Method Room Air Positive well nourished and well developed; Negative for obese, cachectic, contractures or unkempt General Appearance ED: well developed and NAD; Negative for unkempt, cachectic, contractures, cyanotic or diaphoretic Nutritional Appearance: Negative for cachectic or obese HEENT Reports moist mucous membranes normocephalic and atraumatic Eyes PERRL and EOMs intact bilaterally Neck full ROM and supple Chest Wall inspection of chest normal and palpation of chest normal Resp normal respiratory effort and clear to auscultation bilaterally Auscultation: Negative for rales, rhonchi or wheezes Cardio regular rhythm, S1 normal heart sound, S2 normal heart sound and no murmurs GI non-tender, non-distended and no masses Auscultation: normoactive bowel sounds Palpation: soft; Negative for tender, guarding or rebound tenderness present Back/Spine no CVA tenderness Extremity normal to inspection and full ROM Extremity Narrative: Except left forearm exam consistent with a De Qeurvain's tenosynovitis. General Extremety ED: Negative for edema General Extremity: Negative for edema Neuro oriented x3, CN's II-XII intact bilaterally, moves all extremities, no focal motor deficits and no sensory deficits noted Motor Exam: strength 5/5 throughout Psych mental status grossly normal Appearance: Negative for unkempt Mood & Affect: Negative for depressed, anxious or tearful Skin General Skin Exam: Negative for petechiae Lesions: no lesions Rashes: no rashes Trauma: no lacerations or abrasions MDM MDM MDM Narrative Medical decision making narrative: [id number] male with an atraumatic left forearm pain for the last 3 days. 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 He is left-hand dominant. I suspected DE Quervain's tenosynovitis. X-ray being obtained. Lungs x-ray is normal which I expect he will be treated as a tendinitis with ice, rest and anti-inflammatories. History & Record Review Discussion w/independent historian: Patient Additional record(s) reviewed:: Prior inpatient record, Prior outpatient record, Prior ED visit and Prior labs Radiography Diagnostic Testing: Left wrist x-ray, 3 views, interpreted by myself shows no acute fracture. No dislocation. Right is normal. Discussed with the patient. Discharge Plan Triage Chief Complaint: Upper Extremity Injury ED Provider: Gray Davison Dx/Rx/DC Orders Clinical Impression: De Quervain's disease (tenosynovitis) Instructions: ED Tendonitis Prescriptions: No Action ibuprofen 600 mg tablet 600 mg PO Q6H PRN (Reason: pain) 5 Days Qty: 30 0RF Primary Care Provider: Care Physician,Susie Primary Referrals: Franki Ro [facility], [facility] [Non-Staff] - 1 Week if not improving Activity Restrictions/Additional Instructions: This is caused by inflammation of the tendon along your forearm. To get better it needs to be iced. Rest. An anti-inflammatory such as Motrin, Advil or ibuprofen. That will also help with the pain. This should progressively start getting better. If not you will follow-up. Print Language: Vincentian Disposition Disposition: Home, Self Care
--- NOTE | 2024-05-04 10:20 | RAD_ITS ---
PROCEDURE: WRIST MIN 3 VIEWS REASON FOR EXAM: 24-year-old male, left wrist pain and swelling x2 days. No known injury. TECHNIQUE: 3 view(s) of the left wrist COMPARISON: None. FINDINGS: No visible fracture. No suspicious bone lesion. Normal alignment. Soft tissues are unremarkable. RAD/Wrist min 3 Views IMPRESSION: No acute fracture. Reading Location: [id number]
[2024-05-04 10:53] VITALS: BP 124/78; PULSE 64; RESP 18; TEMP 36.6; O2SAT 99
== END 2024-05-04 10:53 | disposition home or self-care (01) ==
PROVIDERS: Emergency Provider Emergency Medicine; Visit Provider Emergency Medicine
DX: M65.4 Radial styloid tenosynovitis [de Quervain] (principal); F17.210 Nicotine dependence, cigarettes, uncomplicated
CPT/HCPCS: 73110; 99282